=== PATIENT | female | born 1965 | race Caucasian/White ===

== ENCOUNTER 2017-06-20 21:09 | Emergency (ER) | payer MEDICAID, MEDICARE ==
[~2017-06-20] VITALS: Ht 154.9 cm; Wt 90.8 kg
[~2017-06-20 21:09] MED LIST: ACID1GRA2 PO; ASCO10006 PO; CHOL5000 PO; CIPR500T3 PO; ESCI20TA PO; METH750T87 PO; OXYC-223 PO; OXYC5CAP4 PO; POLY17PO5 PO
[2017-06-20 21:14] VITALS: BP 129/81
== END 2017-06-20 23:10 | disposition home or self-care (01) ==
LOC: ED 23:09
DX: S63.501A Unspecified sprain of right wrist, initial encounter (principal); Z90.49 Acquired absence of other specified parts of digestive tract; Z90.710 Acquired absence of both cervix and uterus; W50.1XXA Accidental kick by another person, initial encounter; Y93.89 Activity, other specified; Y92.89 Other specified places as the place of occurrence of the external cause; Y99.8 Other external cause status
CPT/HCPCS: 29125; 99284